=== PATIENT | female | born 1970 | race Caucasian/White ===

== ENCOUNTER 2017-06-21 09:39 | Emergency (ER) | payer OTHER ==
[~2017-06-21] VITALS: Ht 167.6 cm; Wt 62.4 kg
[2017-06-21 10:25] LABS: BASOPHIL (%) 0.3 % (0-1); EOSINOPHIL (%) 0.4 % (0-5); HEMATOCRIT 42.6 % (36.0-46.0); HEMOGLOBIN 14.8 G/DL (11.9-15.5); IMMATURE GRANULOCYTE (%) 0.1 % (0.0-0.7); LYMPHOCYTE (%) 10.1 % (15-42); LYMPHOCYTE COUNT 0.9 K/uL (1.0-2.8); MCH 29.4 PG (29.0-34.0); MCHC 34.7 G/DL (30.0-36.0); MCV 84.7 FL (83-99); MONOCYTE (%) 4.8 % (3-12); MONOCYTE COUNT 0.4 K/uL (0-0.8); NEUTROPHIL (%) 84.3 % (45-76); NEUTROPHIL COUNT 7.7 K/uL (1.8-6.4); PLATELET COUNT 196 K/uL (156-360); RBC DIS.WIDTH-SD 36.6 % (39-53); RED BLOOD COUNT 5.03 M/uL (3.80-5.20); WHITE BLOOD COUNT 9.1 K/uL (4.1-10.2)
[2017-06-21 10:34] LABS: INTER. NORMALIZED RATIO 1.1
[2017-06-21 10:36] LABS: PTT 32.6 SEC (25-37)
[2017-06-21 11:04] LABS: CHLORIDE 107 MEQ/L (99-109); CREATININE 0.8 MG/DL (0.6-1.3); GFR ESTIMATE (CALCULATED) > 59 mL/min/; GLUCOSE 93 mg/dL (70-99); POTASSIUM 3.9 MEQ/L (3.7-5.4); SODIUM 140 MEQ/L (136-147); UREA NITROGEN (BUN) 15 mg/dL (9-23)
[2017-06-21 11:07] LABS: TROP-I INTERPRETATION NEGATIVE; TROPONIN-I < 0.01 ng/mL (0.0-0.30)
[2017-06-21 12:49] LABS: THYROTROPIN (TSH) 1.3 MIU/L (0.4-5.5)
[2017-06-21 13:29] LABS: TROP-I INTERPRETATION NEGATIVE; TROPONIN-I < 0.01 ng/mL (0.0-0.30)
[2017-06-21 13:56] VITALS: BP 126/74
== END 2017-06-21 13:56 | disposition home or self-care (01) ==
LOC: EME 09:39
PROVIDERS: Emergency Medicine
DX: R07.89 Other chest pain (principal); R00.2 Palpitations; I34.1 Nonrheumatic mitral (valve) prolapse; E06.3 Autoimmune thyroiditis
CPT/HCPCS: 71045; 80048; 84443; 84484; 85025; 85610; 85730; 93005; 99281; 99284

== ENCOUNTER 2017-06-24 01:43 | Observation (INO) | payer OTHER ==
[~2017-06-24] VITALS: Ht 167.6 cm; Wt 61.7 kg
[2017-06-24 02:25] LABS: BASOPHIL (%) 0.4 % (0-1); EOSINOPHIL (%) 0.1 % (0-5); HEMATOCRIT 41.3 % (36.0-46.0); HEMOGLOBIN 14.6 G/DL (11.9-15.5); IMMATURE GRANULOCYTE (%) 0.3 % (0.0-0.7); LYMPHOCYTE (%) 11.6 % (15-42); LYMPHOCYTE COUNT 1.1 K/uL (1.0-2.8); MCH 29.6 PG (29.0-34.0); MCHC 35.4 G/DL (30.0-36.0); MCV 83.8 FL (83-99); MONOCYTE (%) 4.7 % (3-12); MONOCYTE COUNT 0.5 K/uL (0-0.8); NEUTROPHIL (%) 82.9 % (45-76); PLATELET COUNT 217 K/uL (156-360); RBC DIS.WIDTH-CV 11.9 % (11.8-14.6); RBC DIS.WIDTH-SD 35.8 % (39-53); RED BLOOD COUNT 4.93 M/uL (3.80-5.20); WHITE BLOOD COUNT 9.7 K/uL (4.1-10.2)
[2017-06-24 02:33] LABS: ALBUMIN 4.4 g/dL (3.2-4.8); CHLORIDE 107 mEq/L (99-109); POTASSIUM 4.2 mEq/L (3.7-5.4); SODIUM 140 mEq/L (136-147)
[2017-06-24 02:36] LABS: GLUCOSE 108 mg/dL (70-99); TOTAL PROTEIN 7.6 g/dL (6.4-8.3)
[2017-06-24 02:38] LABS: TOTAL BILIRUBIN 1.3 mg/dL (0.0-1.0)
[2017-06-24 02:39] LABS: ALKALINE PHOSPHATASE 51 IU/L (3-129); CREATININE 0.8 mg/dL (0.6-1.3); GFR ESTIMATE (CALCULATED) > 59 mL/min/
[2017-06-24 02:40] LABS: UREA NITROGEN (BUN) 12 mg/dL (9-23)
[2017-06-24 02:41] LABS: AST (GOT) 20 IU/L (2-34)
[2017-06-24 02:42] LABS: ALT (GPT) 14 IU/L (3-49); CREATINE KINASE 51 IU/L (1-294); TOTAL CK 51 IU/L (1-294)
[2017-06-24 02:48] LABS: TROP-I INTERPRETATION NEGATIVE; TROPONIN-I < 0.01 ng/mL (0.0-0.30)
[2017-06-24 02:49] LABS: QUANTITATIVE HCG < 4.0 MIU/ML
[2017-06-24 02:50] LABS: CK-MB 0.4 ng/mL (0.0-4.9); CKMB RELATIVE INDEX 0.8 (0.0-3.9)
[2017-06-24 03:28] LABS: APPEARANCE SL.HAZY ((CLEAR)); BILIRUBIN NEGATIVE; BLOOD LARGE; COLOR YELLOW ((YELLOW)); GLUCOSE (STRIP) NEGATIVE; KETONES 80; LEUKOCYTES SMALL; NITRITE NEGATIVE; PROTEIN (STRIP) 30; SPECIFIC GRAVITY 1.012 (1.000-1.030); UROBILINOGEN 0.2 MG/DL (0.2-1.0)
[2017-06-24 03:34] LABS: BACTERIA RARE /HPF; EPITHELIAL CELLS RARE /HPF; MUCUS TRACE /LPF; RED BLOOD CELLS TNTC /HPF (0-5); UCUL ADDED? YES
[2017-06-24] MEDS ORDERED: LEVOTHYROXINE88 MCG PO (05:31)
[2017-06-24] MEDS ORDERED: SELENIUM50 MCG PO (05:34)
[2017-06-24] MEDS ORDERED: LEXAPRO10 MG PO (05:34)
[2017-06-24] MEDS ORDERED: PROBIOTIC1 EAC1 PO (05:34)
[2017-06-24] MEDS ORDERED: VITALEE TABLET0.4 MG PO (05:36)
[2017-06-24] MEDS ORDERED: VITAMIN B-121000 MC3 PO (05:38)
[2017-06-24] MEDS ORDERED: LEVO-T88 MCG PO (07:47)
[2017-06-24] MEDS ORDERED: OSTEO-PORETICA1 EACH PO (07:51)
[2017-06-24] MEDS ORDERED: [UNRECOGNIZED DRUG - OTHER] PO (07:55)
[2017-06-24 08:04] LABS: HDL CHOLESTEROL 50 MG/DL (Desirable>=50); LDL CHOLESTEROL 102 mg/dL (Desirable<100); NON-HDL CHOLESTEROL 117 mg/dL (Desirable<160); TOTAL CHOLESTEROL 167 mg/dL (Desirable<200); TRIGLYCERIDES 75 MG/DL (Normal: <150)
[2017-06-24 08:36] LABS: THYROTROPIN (TSH) 1.4 MIU/L (0.4-5.5)
[2017-06-24 12:57] LABS: TROP-I INTERPRETATION NEGATIVE; TROPONIN-I < 0.01 ng/mL (0.0-0.30)
[2017-06-24 18:48] LABS: TROP-I INTERPRETATION NEGATIVE; TROPONIN-I < 0.01 ng/mL (0.0-0.30)
[2017-06-24 20:45] VITALS: BP 121/82
[2017-06-24 23:27] VITALS: BP 98/58
[2017-06-25 03:42] VITALS: BP 109/73
[2017-06-25 06:09] LABS: HEMOGLOBIN 13.1 G/DL (11.9-15.5); MCH 28.9 PG (29.0-34.0); MCHC 33.6 G/DL (30.0-36.0); MCV 85.9 FL (83-99); PLATELET COUNT 189 K/uL (156-360); RBC DIS.WIDTH-SD 37.7 % (39-53); RED BLOOD COUNT 4.54 M/uL (3.80-5.20); WHITE BLOOD COUNT 6.5 K/uL (4.1-10.2)
[2017-06-25 06:38] LABS: CHLORIDE 106 MEQ/L (99-109); GFR ESTIMATE (CALCULATED) > 59 mL/min/; GLUCOSE 84 mg/dL (70-99); POTASSIUM 3.8 MEQ/L (3.7-5.4); SODIUM 140 MEQ/L (136-147); UREA NITROGEN (BUN) 13 mg/dL (9-23)
[2017-06-25 07:40] VITALS: BP 111/67
[2017-06-25 15:30] VITALS: BP 113/71
[2017-06-25 19:30] VITALS: BP 118/73
[2017-06-25 23:19] VITALS: BP 102/61
[2017-06-26 06:15] LABS: BASOPHIL COUNT 0.1 K/uL (0-0.1); EOSINOPHIL (%) 3.9 % (0-5); EOSINOPHIL COUNT 0.2 K/uL (0-0.3); HEMATOCRIT 38.5 % (36.0-46.0); HEMOGLOBIN 12.9 G/DL (11.9-15.5); IMMATURE GRANULOCYTE (%) 0.2 % (0.0-0.7); LYMPHOCYTE (%) 30.9 % (15-42); LYMPHOCYTE COUNT 1.9 K/uL (1.0-2.8); MCH 28.8 PG (29.0-34.0); MCHC 33.5 G/DL (30.0-36.0); MCV 85.9 FL (83-99); MONOCYTE (%) 8.5 % (3-12); MONOCYTE COUNT 0.5 K/uL (0-0.8); NEUTROPHIL (%) 55.5 % (45-76); NEUTROPHIL COUNT 3.4 K/uL (1.8-6.4); PLATELET COUNT 197 K/uL (156-360); RBC DIS.WIDTH-CV 11.9 % (11.8-14.6); RBC DIS.WIDTH-SD 37.4 % (39-53); RED BLOOD COUNT 4.48 M/uL (3.80-5.20); WHITE BLOOD COUNT 6.1 K/uL (4.1-10.2)
[2017-06-26 07:00] VITALS: BP 112/75
[2017-06-26 07:21] LABS: CHLORIDE 106 MEQ/L (99-109); GFR ESTIMATE (CALCULATED) > 59 mL/min/; GLUCOSE 87 mg/dL (70-99); SODIUM 142 MEQ/L (136-147); UREA NITROGEN (BUN) 14 mg/dL (9-23)
[2017-06-26 12:08] LABS: LYME DISEASE SEROLOGY SCREEN NEGATIVE (NEGATIVE)
[2017-06-26] MEDS ORDERED: CITALOPRAM HBR10 MG PO (12:11)
[2017-06-26] MEDS ORDERED: CLONAZEPAM0.5 MG PO (12:12)
[2017-06-26 12:20] VITALS: BP 118/69
== END 2017-06-26 13:21 | disposition home or self-care (01) ==
LOC: EME 01:43 → EDOF 05:11 → 5WEST 05:11 → EDOF 05:11 → ENRESERV 05:13 → 5WEST 19:51 → ENPENDDIS 06-26 → 5WEST 06-26 13:21
PROVIDERS: Emergency Medicine; Internal Medicine; Nurse Practitioner Family
DX: R07.89 Other chest pain (principal); R00.2 Palpitations; G25.2 Other specified forms of tremor; F41.0 Panic disorder [episodic paroxysmal anxiety]; R06.02 Shortness of breath; E06.3 Autoimmune thyroiditis; I34.1 Nonrheumatic mitral (valve) prolapse
CPT/HCPCS: 70450; 70551; 71275; 80048; 80053; 80061; 81003; 82550; 82553; 84443; 84484; 84702; 85025; 85027; 86618; 87086; 93005; 95819; 99281; 99285; G0378; J0696; J1650; J2060; J7030